=== PATIENT | male | born 1940 | race Caucasian/White ===

== ENCOUNTER 2017-01-05 06:29 | Inpatient (IN) | payer OTHER ==
[~2017-01-05] VITALS: Ht 172.7 cm; Wt 76.0 kg
[2017-01-05 06:54] LABS: HEMATOCRIT 47.5 % (38.0-50.0); MCH 31.4 PG (29.0-34.0); MCHC 34.7 G/DL (30.0-36.0); MCV 90.5 FL (86-99); PLATELET COUNT 162 K/uL (156-360); RBC DIS.WIDTH-CV 12.6 % (11.8-14.6); RED BLOOD COUNT 5.25 M/uL (4.00-5.50); WHITE BLOOD COUNT 11.6 K/uL (4.1-10.2)
[2017-01-05 07:17] LABS: ANION GAP 12 MEQ/L (2-14); CHLORIDE 105 MEQ/L (99-109); POTASSIUM 3.7 MEQ/L (3.7-5.4); SAMPLE HEMOLYSIS CHECK 0; SAMPLE ICTERIC CHECK 0; SAMPLE LIPEMIA CHECK 0; SODIUM 141 MEQ/L (136-147)
[2017-01-05 07:23] LABS: GFR ESTIMATE (CALCULATED) > 59 mL/min/; GLUCOSE 116 mg/dL (70-99); UREA NITROGEN (BUN) 24 mg/dL (9-23)
[2017-01-05 07:29] LABS: TROP-I INTERPRETATION POSITIVE; TROPONIN-I 11.91 ng/mL (0.0-0.30)
[2017-01-05] MEDS ORDERED: AMLODIPINE BESY10 MG PO (07:46)
[2017-01-05] MEDS ORDERED: HYGROTON50 MG PO (07:47)
[2017-01-05] MEDS ORDERED: ASPIR 8181 M1 PO (07:47)
[2017-01-05] MEDS ORDERED: ARICEPT5 MG PO (07:47)
[2017-01-05] MEDS ORDERED: HYTRIN5 MG PO (07:48)
[2017-01-05] MEDS ORDERED: BENICAR20 MG PO (07:48)
[2017-01-05] MEDS ORDERED: PRAVACHOL40 MG PO (07:48)
[2017-01-05 17:14] VITALS: BP 124/64
[2017-01-05 18:23] LABS: TROP-I INTERPRETATION POSITIVE; TROPONIN-I 29.29 ng/mL (0.0-0.30)
[2017-01-05 23:37] VITALS: BP 115/55
[2017-01-06 00:51] LABS: TROP-I INTERPRETATION POSITIVE; TROPONIN-I 29.11 ng/mL (0.0-0.30)
[2017-01-06 04:13] VITALS: BP 122/71
[2017-01-06 04:21] VITALS: BP 122/71
[2017-01-06 05:39] LABS: TROP-I INTERPRETATION POSITIVE; TROPONIN-I 27.39 ng/mL (0.0-0.30)
[2017-01-06 06:38] LABS: EOSINOPHIL (%) 0.8 % (0-5); EOSINOPHIL COUNT 0.1 K/uL (0-0.3); HEMATOCRIT 42.8 % (38.0-50.0); IMMATURE GRANULOCYTE (%) 0.4 % (0.0-0.7); INSTRUMENT ABS NEUTROPHIL CT 7.7 K/uL; LYMPHOCYTE COUNT 1.3 K/uL (1.0-2.8); MCH 30.3 PG (29.0-34.0); MCHC 33.2 G/DL (30.0-36.0); MCV 91.3 FL (86-99); MEAN PLAT.VOLUME 11.6 uM^3 (9.0-12.4); MONOCYTE (%) 11.3 % (3-12); MONOCYTE COUNT 1.2 K/uL (0-0.8); NEUTROPHIL (%) 74.4 % (45-76); NEUTROPHIL COUNT 7.7 K/uL (1.8-6.4); PLATELET COUNT 152 K/uL (156-360); RBC DIS.WIDTH-CV 13.1 % (11.8-14.6); RBC DIS.WIDTH-SD 43.8 % (39-53); RED BLOOD COUNT 4.69 M/uL (4.00-5.50); WHITE BLOOD COUNT 10.4 K/uL (4.1-10.2)
[2017-01-06 06:55] LABS: ANION GAP 10 MEQ/L (2-14); CHLORIDE 108 MEQ/L (99-109); GFR ESTIMATE (CALCULATED) > 59 mL/min/; GLUCOSE 102 mg/dL (70-99); HDL CHOLESTEROL 40 MG/DL (Desirable>=40); LDL CHOLESTEROL 95 mg/dL (Desirable<100); NON-HDL CHOLESTEROL 115 mg/dL (Desirable<160); POTASSIUM 3.9 MEQ/L (3.7-5.4); SAMPLE HEMOLYSIS CHECK 0; SAMPLE ICTERIC CHECK 0; SAMPLE LIPEMIA CHECK 0; SODIUM 141 MEQ/L (136-147); TOTAL CHOLESTEROL 155 mg/dL (Desirable<200); TRIGLYCERIDES 99 MG/DL (Normal: <150); UREA NITROGEN (BUN) 19 mg/dL (9-23)
[2017-01-06 08:00] VITALS: BP 131/74
[2017-01-06 16:00] VITALS: BP 128/68
[2017-01-06] MEDS ORDERED: ATORVASTATIN CA40 MG PO (18:53)
[2017-01-06] MEDS ORDERED: LOPRESSOR25 MG PO (18:53)
[2017-01-06] MEDS ORDERED: BRILINTA90 MG PO (18:53)
== END 2017-01-06 19:55 | disposition home or self-care (01) | DRG 247 ==
LOC: EME 06:29 → CATH 07:36 → EME 07:36 → 4EAST 11:21 → 2SOUTH 11:21 → 4EAST 17:05
PROVIDERS: Internal Medicine Cardiovascular Disease
DX: I21.4 Non-ST elevation (NSTEMI) myocardial infarction (principal); I25.111 Atherosclerotic heart disease of native coronary artery with angina pectoris with documented spasm; I10 Essential (primary) hypertension; E78.5 Hyperlipidemia, unspecified; I51.9 Heart disease, unspecified; I69.393 Ataxia following cerebral infarction; I69.311 Memory deficit following cerebral infarction
CPT/HCPCS: 71010; 80048; 80061; 84484; 85025; 85027; 85347; 93005; 93306; 99281; 99284; C1725; C1760; C1769; C1874; C1887; C1894; J1644; J2250; J2270; J3010; J3246; J7030

== ENCOUNTER 2017-02-24 12:51 | Emergency (ER) | payer OTHER ==
[~2017-02-24] VITALS: Ht 172.7 cm; Wt 68.0 kg
[~2017-02-24 12:51] MED LIST: AMLODIPINE BESY10 MG PO; ARICEPT5 MG PO; ASPIR 8181 M1 PO; ATORVASTATIN CA40 MG PO; BENICAR20 MG PO; BRILINTA90 MG PO; HYGROTON50 MG PO; HYTRIN5 MG PO; LOPRESSOR25 MG PO; PRAVACHOL40 MG PO
[2017-02-24 14:04] LABS: HEMATOCRIT 44.4 % (38.0-50.0); MCH 31.2 PG (29.0-34.0); MCHC 34.7 G/DL (30.0-36.0); MCV 89.9 FL (86-99); MEAN PLAT.VOLUME 11.3 uM^3 (9.0-12.4); PLATELET COUNT 146 K/uL (156-360); RBC DIS.WIDTH-CV 12.4 % (11.8-14.6); RBC DIS.WIDTH-SD 41.1 % (39-53); RED BLOOD COUNT 4.94 M/uL (4.00-5.50); WHITE BLOOD COUNT 7.8 K/uL (4.1-10.2)
[2017-02-24 14:13] LABS: INTER. NORMALIZED RATIO 1.1; PROTHROMBIN TIME 10.7 (9.2-11.2)
[2017-02-24 14:19] LABS: CHLORIDE 109 mEq/L (99-109); POTASSIUM 3.3 mEq/L (3.7-5.4); SODIUM 146 mEq/L (136-147)
[2017-02-24 14:21] LABS: GLUCOSE 89 mg/dL (70-99)
[2017-02-24 14:23] LABS: ANION GAP 14 MEQ/L (2-14)
[2017-02-24 14:25] LABS: GFR ESTIMATE (CALCULATED) > 59 mL/min/
[2017-02-24 14:26] LABS: UREA NITROGEN (BUN) 17 mg/dL (9-23)
[2017-02-24 16:33] VITALS: BP 165/91
== END 2017-02-24 16:34 | disposition home or self-care (01) ==
LOC: EME 12:51
DX: K13.79 Other lesions of oral mucosa (principal); D68.32 Hemorrhagic disorder due to extrinsic circulating anticoagulants; T45.515A Adverse effect of anticoagulants, initial encounter; Z79.82 Long term (current) use of aspirin; I10 Essential (primary) hypertension
CPT/HCPCS: 80048; 85027; 85610; 86900; 86901; 99281; 99283

== ENCOUNTER → 2017-03-15 | Outpatient (CLI) | payer OTHER | END | disposition home or self-care (01) | LOC: RAD 12:12 | DX: I70.0 Atherosclerosis of aorta (principal); J98.6 Disorders of diaphragm; I87.8 Other specified disorders of veins; J98.4 Other disorders of lung; M47.9 Spondylosis, unspecified; R33.9 Retention of urine, unspecified | CPT/HCPCS: 74022; 76775 ==

== ENCOUNTER 2017-03-16 12:17 | Emergency (ER) | payer OTHER ==
[~2017-03-16] VITALS: Ht 172.7 cm; Wt 68.2 kg
[2017-03-16 13:19] LABS: HEMATOCRIT 42.1 % (38.0-50.0); MCH 31.4 PG (29.0-34.0); MCHC 35.4 G/DL (30.0-36.0); MCV 88.6 FL (86-99); MEAN PLAT.VOLUME 11.5 uM^3 (9.0-12.4); PLATELET COUNT 136 K/uL (156-360); RBC DIS.WIDTH-CV 13.3 % (11.8-14.6); RBC DIS.WIDTH-SD 43.3 % (39-53); RED BLOOD COUNT 4.75 M/uL (4.00-5.50); WHITE BLOOD COUNT 15.6 K/uL (4.1-10.2)
[2017-03-16 13:29] LABS: CHLORIDE 107 mEq/L (99-109); POTASSIUM 3.1 mEq/L (3.7-5.4); SODIUM 144 mEq/L (136-147)
[2017-03-16 13:32] LABS: GLUCOSE 137 mg/dL (70-99)
[2017-03-16 13:33] LABS: ANION GAP 11 MEQ/L (2-14)
[2017-03-16 13:34] LABS: TOTAL BILIRUBIN 1.6 mg/dL (0.0-1.0)
[2017-03-16 13:35] LABS: ALKALINE PHOSPHATASE 80 IU/L (3-129); GFR ESTIMATE (CALCULATED) 49 mL/min/
[2017-03-16 13:36] LABS: UREA NITROGEN (BUN) 30 mg/dL (9-23)
[2017-03-16 13:39] LABS: LIPASE 20 U/L (1.0-51.0)
[2017-03-16 14:48] LABS: ADD MIUA? YES; BILIRUBIN NEGATIVE; BLOOD LARGE; COLOR YELLOW ((YELLOW)); GLUCOSE (STRIP) NEGATIVE; KETONES 20; LEUKOCYTES NEGATIVE; NITRITE NEGATIVE; PROTEIN (STRIP) 30; SPECIFIC GRAVITY 1.012 (1.000-1.030); UROBILINOGEN 0.2 MG/DL (0.2-1.0)
[2017-03-16 15:18] LABS: BACTERIA RARE /HPF; EPITHELIAL CELLS NONE SEEN /HPF; MUCUS TRACE /LPF; RED BLOOD CELLS TNTC /HPF (0-5); UCUL ADDED? NO
[2017-03-16 16:35] VITALS: BP 175/88
== END 2017-03-16 16:40 | disposition home or self-care (01) ==
LOC: EME 12:17
PROVIDERS: Nurse Practitioner Family
PROC: 0T9B70Z Drainage of Bladder with Drainage Device, Via Natural or Artificial Opening (ICD-10-PCS; principal; 2017-03-16)
DX: R33.9 Retention of urine, unspecified (principal); N39.0 Urinary tract infection, site not specified; R11.2 Nausea with vomiting, unspecified; I10 Essential (primary) hypertension; Z79.82 Long term (current) use of aspirin
CPT/HCPCS: 80053; 81003; 83690; 85027; 99281; 99285

== ENCOUNTER 2017-04-14 14:02 | Inpatient (IN) | payer OTHER ==
[~2017-04-14] VITALS: Ht 170.2 cm; Wt 63.7 kg
[2017-04-14 15:00] LABS: HEMATOCRIT 42.5 % (38.0-50.0); MCHC 34.1 G/DL (30.0-36.0); MEAN PLAT.VOLUME 10.2 uM^3 (9.0-12.4); PLATELET COUNT 284 K/uL (156-360); RBC DIS.WIDTH-CV 12.8 % (11.8-14.6); RBC DIS.WIDTH-SD 41.1 % (39-53); RED BLOOD COUNT 4.83 M/uL (4.00-5.50); WHITE BLOOD COUNT 12.6 K/uL (4.1-10.2)
[2017-04-14 15:02] LABS: CHLORIDE 93 mEq/L (99-109); POTASSIUM 2.6 mEq/L (3.7-5.4); SODIUM 142 mEq/L (136-147)
[2017-04-14 15:04] LABS: GLUCOSE 109 mg/dL (70-99)
[2017-04-14 15:05] LABS: ANION GAP 19 MEQ/L (2-14)
[2017-04-14 15:06] LABS: TOTAL BILIRUBIN 0.9 mg/dL (0.0-1.0)
[2017-04-14 15:08] LABS: ALKALINE PHOSPHATASE 139 IU/L (3-129); GFR ESTIMATE (CALCULATED) > 59 mL/min/
[2017-04-14 15:09] LABS: UREA NITROGEN (BUN) 26 mg/dL (9-23)
[2017-04-14 15:49] LABS: TROP-I INTERPRETATION NEGATIVE; TROPONIN-I 0.03 ng/mL (0.0-0.30)
[2017-04-14 18:19] LABS: MAGNESIUM 1.8 mg/dL (1.3-2.7)
[2017-04-14 18:30] LABS: ADD MIUA? YES; BILIRUBIN NEGATIVE; BLOOD LARGE; COLOR YELLOW ((YELLOW)); GLUCOSE (STRIP) NEGATIVE; KETONES 5; LEUKOCYTES NEGATIVE; NITRITE NEGATIVE; PROTEIN (STRIP) 30; SPECIFIC GRAVITY 1.014 (1.000-1.030); UROBILINOGEN 0.2 MG/DL (0.2-1.0)
[2017-04-14 18:44] LABS: BACTERIA NONE SEEN /HPF; EPITHELIAL CELLS NONE SEEN /HPF; MUCUS TRACE /LPF; RED BLOOD CELLS TNTC /HPF (0-5); UCUL ADDED? YES
[2017-04-14] MEDS ORDERED: MANDELAMINE500 MG PO (19:25)
[2017-04-14] MEDS ORDERED: PROSCAR5 MG PO (19:25)
[2017-04-14] MEDS ORDERED: LASIX20 MG PO (19:26)
[2017-04-14] MEDS ORDERED: REMERON15 M2 PO (19:26)
[2017-04-14] MEDS ORDERED: FLOMAX0.4 MG PO (19:26)
[2017-04-14 23:43] LABS: CHLORIDE 97 mEq/L (99-109); POTASSIUM 3.1 mEq/L (3.7-5.4); SODIUM 143 mEq/L (136-147)
[2017-04-14 23:44] LABS: GLUCOSE 101 mg/dL (70-99)
[2017-04-14 23:46] LABS: ANION GAP 16 MEQ/L (2-14)
[2017-04-14 23:48] LABS: GFR ESTIMATE (CALCULATED) > 59 mL/min/
[2017-04-14 23:49] LABS: UREA NITROGEN (BUN) 26 mg/dL (9-23)
[2017-04-14 23:57] LABS: TROP-I INTERPRETATION NEGATIVE; TROPONIN-I 0.04 ng/mL (0.0-0.30)
[2017-04-15] VITALS (7 sets, daily range): BP systolic 102–135; BP diastolic 60–68
[2017-04-15 04:24] LABS: HEMATOCRIT 37.4 % (38.0-50.0); MCH 30.9 PG (29.0-34.0); MCHC 34.8 G/DL (30.0-36.0); MCV 88.8 FL (86-99); MEAN PLAT.VOLUME 10.6 uM^3 (9.0-12.4); PLATELET COUNT 209 K/uL (156-360); RED BLOOD COUNT 4.21 M/uL (4.00-5.50); WHITE BLOOD COUNT 8.9 K/uL (4.1-10.2)
[2017-04-15 04:37] LABS: CHLORIDE 97 mEq/L (99-109); POTASSIUM 3.2 mEq/L (3.7-5.4); SODIUM 141 mEq/L (136-147)
[2017-04-15 04:39] LABS: GLUCOSE 93 mg/dL (70-99)
[2017-04-15 04:40] LABS: ANION GAP 16 MEQ/L (2-14)
[2017-04-15 04:43] LABS: GFR ESTIMATE (CALCULATED) > 59 mL/min/
[2017-04-15 04:44] LABS: UREA NITROGEN (BUN) 23 mg/dL (9-23)
[2017-04-15 04:45] LABS: CREATINE KINASE 27 IU/L (1-294); TROP-I INTERPRETATION NEGATIVE; TROPONIN-I 0.05 ng/mL (0.0-0.30)
[2017-04-15 05:16] LABS: SAMPLE HEMOLYSIS CHECK 0; SAMPLE ICTERIC CHECK 0; SAMPLE LIPEMIA CHECK 0
[2017-04-15 05:22] LABS: HDL CHOLESTEROL 32 MG/DL (Desirable>=40); LDL CHOLESTEROL 82 mg/dL (Desirable<100); NON-HDL CHOLESTEROL 104 mg/dL (Desirable<160); TOTAL CHOLESTEROL 136 mg/dL (Desirable<200); TRIGLYCERIDES 108 MG/DL (Normal: <150)
[2017-04-15 10:13] LABS: HIV INDEX 0.12; HIV-1/2 AB/AG COMBO Nonreactive
[2017-04-16 04:06] VITALS: BP 110/66
[2017-04-16 07:09] LABS: GFR ESTIMATE (CALCULATED) > 59 mL/min/; GLUCOSE 82 mg/dL (70-99); SAMPLE HEMOLYSIS CHECK 0; SAMPLE ICTERIC CHECK 0; SAMPLE LIPEMIA CHECK 0; UREA NITROGEN (BUN) 16 mg/dL (9-23)
[2017-04-16 07:14] LABS: ANION GAP 10 MEQ/L (2-14); CHLORIDE 105 MEQ/L (99-109); POTASSIUM 3.3 MEQ/L (3.7-5.4); SODIUM 146 MEQ/L (136-147)
[2017-04-16 08:00] VITALS: BP 122/71
[2017-04-16 11:25] VITALS: BP 120/72
[2017-04-16 15:26] VITALS: BP 128/77
[2017-04-16 19:05] VITALS: BP 110/57
[2017-04-16 22:50] VITALS: BP 119/67
[2017-04-17 03:45] VITALS: BP 131/75
[2017-04-17 06:12] LABS: HEMATOCRIT 35.4 % (38.0-50.0); MCH 30.3 PG (29.0-34.0); MCHC 33.9 G/DL (30.0-36.0); MCV 89.4 FL (86-99); MEAN PLAT.VOLUME 10.4 uM^3 (9.0-12.4); PLATELET COUNT 183 K/uL (156-360); RBC DIS.WIDTH-CV 13.2 % (11.8-14.6); RBC DIS.WIDTH-SD 43.6 % (39-53); RED BLOOD COUNT 3.96 M/uL (4.00-5.50); WHITE BLOOD COUNT 7.2 K/uL (4.1-10.2)
[2017-04-17 06:41] LABS: ANION GAP 5 MEQ/L (2-14); CHLORIDE 108 MEQ/L (99-109); GFR ESTIMATE (CALCULATED) > 59 mL/min/; GLUCOSE 93 mg/dL (70-99); MAGNESIUM 1.9 mg/dl (1.3-2.7); POTASSIUM 3.7 MEQ/L (3.7-5.4); SAMPLE HEMOLYSIS CHECK 0; SAMPLE ICTERIC CHECK 0; SAMPLE LIPEMIA CHECK 0; SODIUM 144 MEQ/L (136-147); UREA NITROGEN (BUN) 16 mg/dL (9-23)
[2017-04-17 07:10] VITALS: BP 145/74
[2017-04-17 12:04] VITALS: BP 137/60
[2017-04-17 16:09] VITALS: BP 113/87
[2017-04-17 18:53] VITALS: BP 119/65
[2017-04-17 22:43] VITALS: BP 121/72
[2017-04-18 04:00] VITALS: BP 125/79
[2017-04-18 07:25] LABS: ANION GAP 7 MEQ/L (2-14); CHLORIDE 109 MEQ/L (99-109); GFR ESTIMATE (CALCULATED) > 59 mL/min/; GLUCOSE 91 mg/dL (70-99); POTASSIUM 4.4 MEQ/L (3.7-5.4); SAMPLE HEMOLYSIS CHECK 0; SAMPLE ICTERIC CHECK 0; SAMPLE LIPEMIA CHECK 0; SODIUM 144 MEQ/L (136-147); UREA NITROGEN (BUN) 16 mg/dL (9-23)
[2017-04-18 07:32] VITALS: BP 134/64
[2017-04-18 11:53] VITALS: BP 149/83
[2017-04-18 15:54] VITALS: BP 135/75
[2017-04-18] MEDS ORDERED: FAMOTIDINE20 MG PO (17:44)
[2017-04-18] MEDS ORDERED: K-DUR20 MEQ PO (17:44)
[2017-04-18] MEDS ORDERED: Chronulac,Cephulac,E PO (17:44)
== END 2017-04-18 20:12 | DRG 641 ==
LOC: EME 14:02 → EDOF 19:09 → 5EAST 19:09 → ENRESERV 19:15 → 5EAST 21:43
PROVIDERS: Hospitalist; Internal Medicine; Physician Assistant Medical
DX: E86.0 Dehydration (principal); E87.6 Hypokalemia; I25.2 Old myocardial infarction; I25.118 Atherosclerotic heart disease of native coronary artery with other forms of angina pectoris; I10 Essential (primary) hypertension; I42.0 Dilated cardiomyopathy; R62.7 Adult failure to thrive; R33.9 Retention of urine, unspecified; R63.4 Abnormal weight loss; J90 Pleural effusion, not elsewhere classified; E78.5 Hyperlipidemia, unspecified; F33.2 Major depressive disorder, recurrent severe without psychotic features; R45.851 Suicidal ideations; I69.393 Ataxia following cerebral infarction; F33.3 Major depressive disorder, recurrent, severe with psychotic symptoms; N40.1 Benign prostatic hyperplasia with lower urinary tract symptoms; N13.8 Other obstructive and reflux uropathy; G62.9 Polyneuropathy, unspecified; G60.0 Hereditary motor and sensory neuropathy; K22.2 Esophageal obstruction; M50.30 Other cervical disc degeneration, unspecified cervical region
CPT/HCPCS: 70491; 71260; 72100; 74177; 74241; 80048; 80048 91; 80053; 80061; 81003; 82272; 82306; 82550; 82607; 82746; 83735; 84443; 84484; 85027; 85651; 86703; 87086; 87493; 92610 GN; 93005; 99281; 99285; J1644; J2405; J3480; J7030

== ENCOUNTER 2017-05-13 11:05 | Observation (INO) | payer OTHER ==
[~2017-05-13] VITALS: Ht 172.7 cm; Wt 58.5 kg
[~2017-05-13 11:05] MED LIST changes: +Chronulac,Cephulac,E PO; +FAMOTIDINE20 MG PO; +FLOMAX0.4 MG PO; +K-DUR20 MEQ PO; +LASIX20 MG PO; +MANDELAMINE500 MG PO; +PROSCAR5 MG PO; +REMERON30 M1 PO
[2017-05-13 13:12] LABS: HEMATOCRIT 39.7 % (38.0-50.0); MCH 30.7 PG (29.0-34.0); MCV 90.2 FL (86-99); PLATELET COUNT 213 K/uL (156-360); RBC DIS.WIDTH-CV 14.2 % (11.8-14.6); RBC DIS.WIDTH-SD 47.6 % (39-53); WHITE BLOOD COUNT 10.9 K/uL (4.1-10.2)
[2017-05-13 13:13] LABS: ADD MIUA? YES; BILIRUBIN NEGATIVE; BLOOD MODERATE; COLOR AMBER ((YELLOW)); GLUCOSE (STRIP) NEGATIVE; KETONES NEGATIVE; LEUKOCYTES LARGE; NITRITE POSITIVE; PROTEIN (STRIP) 100; SPECIFIC GRAVITY 1.023 (1.000-1.030); UROBILINOGEN 0.2 MG/DL (0.2-1.0)
[2017-05-13 13:17] LABS: CHLORIDE 99 mEq/L (99-109); POTASSIUM 4.2 mEq/L (3.7-5.4); SODIUM 134 mEq/L (136-147)
[2017-05-13 13:19] LABS: GLUCOSE 100 mg/dL (70-99)
[2017-05-13 13:20] LABS: ANION GAP 12 MEQ/L (2-14)
[2017-05-13 13:23] LABS: GFR ESTIMATE (CALCULATED) > 59 mL/min/
[2017-05-13 13:24] LABS: UREA NITROGEN (BUN) 25 mg/dL (9-23)
[2017-05-13 13:27] LABS: TROP-I INTERPRETATION NEGATIVE; TROPONIN-I < 0.01 ng/mL (0.0-0.30)
[2017-05-13 13:33] LABS: AMORPHOUS URATES CRYSTALS 2+; BACTERIA 3+ /HPF; CASTS NONE SEEN /LPF; CRYSTALS PRESENT; EPITHELIAL CELLS RARE /HPF; MUCUS NONE SEEN /LPF; UCUL ADDED? YES; WHITE BLOOD CELLS TNTC /HPF (0-5)
[2017-05-13] MEDS ORDERED: LIPITOR40 MG PO (14:59)
[2017-05-13 18:18] VITALS: BP 112/65
[2017-05-14 00:24] VITALS: BP 99/56
[2017-05-14 04:59] VITALS: BP 97/54
[2017-05-14 06:03] LABS: ANION GAP 7 MEQ/L (2-14); CHLORIDE 106 MEQ/L (99-109); GFR ESTIMATE (CALCULATED) > 59 mL/min/; GLUCOSE 82 mg/dL (70-99); POTASSIUM 3.8 MEQ/L (3.7-5.4); SAMPLE HEMOLYSIS CHECK 0; SAMPLE ICTERIC CHECK 0; SAMPLE LIPEMIA CHECK 0; SODIUM 137 MEQ/L (136-147); UREA NITROGEN (BUN) 18 mg/dL (9-23)
[2017-05-14 08:38] VITALS: BP 106/58
[2017-05-14 12:36] VITALS: BP 102/57
[2017-05-14] MEDS ORDERED: BACTRIM,SEPT1 TABLET PO (12:50)
== END 2017-05-14 15:07 | disposition home or self-care (01) ==
LOC: EME 11:05 → EDOF 15:32 → ENRESERV 15:34 → 5WEST 18:08
PROVIDERS: Emergency Medicine; Nurse Practitioner Adult Health
DX: I95.1 Orthostatic hypotension (principal); N39.0 Urinary tract infection, site not specified; I25.10 Atherosclerotic heart disease of native coronary artery without angina pectoris; I25.2 Old myocardial infarction; I10 Essential (primary) hypertension; Z86.73 Personal history of transient ischemic attack (TIA), and cerebral infarction without residual deficits; N40.1 Benign prostatic hyperplasia with lower urinary tract symptoms; R33.8 Other retention of urine; I42.9 Cardiomyopathy, unspecified; Z86.19 Personal history of other infectious and parasitic diseases; Z95.5 Presence of coronary angioplasty implant and graft; Z82.3 Family history of stroke; Z82.49 Family history of ischemic heart disease and other diseases of the circulatory system; Z83.49 Family history of other endocrine, nutritional and metabolic diseases; Z91.09 Other allergy status, other than to drugs and biological substances; Z79.82 Long term (current) use of aspirin
CPT/HCPCS: 71010; 80048; 81003; 84484; 85027; 87040; 87077; 87086; 87186; 93005; 99281; 99285; G0378; G8987 CK; G8988 GO CJ; J0696; J1650; J7030; J7050

== ENCOUNTER 2017-05-30 14:03 | Inpatient (IN) | payer OTHER ==
[~2017-05-30] VITALS: Ht 172.7 cm; Wt 59.1 kg
[~2017-05-30 14:03] MED LIST changes: +BACTRIM,SEPT1 TABLET PO; +LIPITOR40 MG PO; -MANDELAMINE500 MG PO
[2017-05-30 15:26] LABS: HEMATOCRIT 39.3 % (38.0-50.0); MCH 29.9 PG (29.0-34.0); MCHC 33.3 G/DL (30.0-36.0); MCV 89.7 FL (86-99); RBC DIS.WIDTH-CV 14.3 % (11.8-14.6); RBC DIS.WIDTH-SD 47.8 % (39-53); RED BLOOD COUNT 4.38 M/uL (4.00-5.50); WHITE BLOOD COUNT 4.5 K/uL (4.1-10.2)
[2017-05-30 15:39] LABS: CHLORIDE 98 mEq/L (99-109); POTASSIUM 3.4 mEq/L (3.7-5.4); SODIUM 134 mEq/L (136-147)
[2017-05-30 15:41] LABS: GLUCOSE 97 mg/dL (70-99)
[2017-05-30 15:42] LABS: ANION GAP 10 MEQ/L (2-14)
[2017-05-30 15:43] LABS: TOTAL BILIRUBIN 0.8 mg/dL (0.0-1.0)
[2017-05-30 15:44] LABS: ALKALINE PHOSPHATASE 106 IU/L (3-129)
[2017-05-30 15:45] LABS: GFR ESTIMATE (CALCULATED) > 59 mL/min/
[2017-05-30 15:46] LABS: UREA NITROGEN (BUN) 14 mg/dL (9-23)
[2017-05-30 15:51] LABS: TROP-I INTERPRETATION NEGATIVE; TROPONIN-I 0.01 ng/mL (0.0-0.30)
[2017-05-30 16:26] LABS: ABS NEUTROPHIL COUNT 3.3; ANISOCYTOSIS 1+; ATYPICAL LYMPHOCYTE 1.8 %; BAND NEUTROPHILS 16.8 % (0-8.0); BURR CELLS 1+; EOSINOPHIL ABS CT 0; GIANT PLATELETS 1+; INSTRUMENT ABS NEUTROPHIL CT 3.2 K/uL; LYMPHOCYTES 16.8 % (15.0-45.0); MICROCYTOSIS 1+; OVALOCYTES 1+; PLAT.SUFFICIENCY ADEQUATE; PLATELET CLUMPS PRESENT - PLATELET COUNT APPEARS ADQ.; SEG.NEUTROPHILS 57.5 % (46.0-76.0); SPHEROCYTES 1+
[2017-05-30 16:27] LABS: PLATELET COUNT UNABLE TO REPORT K/uL (156-360)
[2017-05-30] MEDS ORDERED: MANDELAMINE500 MG PO (19:30)
[2017-05-30] MEDS ORDERED: BACTRIM,SEPTRA S1 ML PO (19:32)
[2017-05-30 21:43] VITALS: BP 131/78
[2017-05-31 06:51] LABS: HEMATOCRIT 33.3 % (38.0-50.0); MCH 31.2 PG (29.0-34.0); MCHC 34.2 G/DL (30.0-36.0); MCV 91.2 FL (86-99); MEAN PLAT.VOLUME 10.1 uM^3 (9.0-12.4); RBC DIS.WIDTH-CV 14.6 % (11.8-14.6); RBC DIS.WIDTH-SD 49.3 % (39-53); RED BLOOD COUNT 3.65 M/uL (4.00-5.50); WHITE BLOOD COUNT 4.4 K/uL (4.1-10.2)
[2017-05-31 07:06] LABS: PLATELET COUNT 163 K/uL (156-360)
[2017-05-31 07:48] LABS: ALKALINE PHOSPHATASE 76 IU/L (3-129); ANION GAP 5 MEQ/L (2-14); CHLORIDE 105 MEQ/L (99-109); GFR ESTIMATE (CALCULATED) > 59 mL/min/; GLUCOSE 85 mg/dL (70-99); POTASSIUM 3.5 MEQ/L (3.7-5.4); SAMPLE HEMOLYSIS CHECK 0; SAMPLE ICTERIC CHECK 0; SAMPLE LIPEMIA CHECK 0; SODIUM 137 MEQ/L (136-147); TOTAL BILIRUBIN 0.8 MG/DL (0.0-1.0); UREA NITROGEN (BUN) 10 mg/dL (9-23)
[2017-05-31 07:53] VITALS: BP 120/60
[2017-05-31 09:38] LABS: MAGNESIUM 1.6 mg/dl (1.3-2.7)
[2017-05-31 14:06] LABS: ADD MIUA? YES; BILIRUBIN NEGATIVE; BLOOD LARGE; COLOR YELLOW ((YELLOW)); GLUCOSE (STRIP) NEGATIVE; KETONES 5; LEUKOCYTES TRACE; NITRITE NEGATIVE; PROTEIN (STRIP) NEGATIVE; SPECIFIC GRAVITY 1.011 (1.000-1.030); UROBILINOGEN 0.2 MG/DL (0.2-1.0)
[2017-05-31 14:20] LABS: BACTERIA RARE /HPF; BUDDING YEAST 4+; EPITHELIAL CELLS NONE SEEN /HPF; MUCUS TRACE /LPF; RED BLOOD CELLS 30-40 /HPF (0-5); UCUL ADDED? NO; WHITE BLOOD CELLS 0-5 /HPF (0-5)
[2017-05-31 17:25] VITALS: BP 122/66
[2017-05-31 22:35] VITALS: BP 138/84
[2017-06-01 06:11] LABS: HEMATOCRIT 33.4 % (38.0-50.0); MCHC 33.2 G/DL (30.0-36.0); MCV 90.3 FL (86-99); MEAN PLAT.VOLUME 9.7 uM^3 (9.0-12.4); PLATELET COUNT 167 K/uL (156-360); RBC DIS.WIDTH-CV 14.4 % (11.8-14.6); RBC DIS.WIDTH-SD 47.5 % (39-53); WHITE BLOOD COUNT 6.3 K/uL (4.1-10.2)
[2017-06-01 06:37] LABS: ANION GAP 9 MEQ/L (2-14); CHLORIDE 109 MEQ/L (99-109); GFR ESTIMATE (CALCULATED) > 59 mL/min/; GLUCOSE 76 mg/dL (70-99); POTASSIUM 3.2 MEQ/L (3.7-5.4); SAMPLE HEMOLYSIS CHECK 0; SAMPLE ICTERIC CHECK 0; SAMPLE LIPEMIA CHECK 0; SODIUM 140 MEQ/L (136-147); UREA NITROGEN (BUN) 10 mg/dL (9-23)
[2017-06-01 07:26] VITALS: BP 140/83
[2017-06-01 08:40] LABS: INTERNAL CONTROL VALID? YES
[2017-06-01] MEDS ORDERED: LEVAQUIN750 MG PO (09:56)
[2017-06-01] MEDS ORDERED: ACIDOPHILUS LA1 EAC1 PO (09:56)
[2017-06-01] MEDS ORDERED: K-DUR10 MEQ PO (09:56)
[2017-06-02] MEDS ORDERED: LEVAQUIN750 MG PO (10:20)
[2017-06-02] MEDS ORDERED: REMERON30 M1 PO (10:20)
== END 2017-06-01 16:12 | DRG 178 ==
LOC: EME → EDBD 14:03 → EME 14:03 → EDOF 19:51 → 5EAST 19:51 → ENRESERV 19:53 → 5EAST 21:07
PROVIDERS: Emergency Medicine; Internal Medicine
DX: J69.0 Pneumonitis due to inhalation of food and vomit (principal); F33.9 Major depressive disorder, recurrent, unspecified; I42.9 Cardiomyopathy, unspecified; J98.11 Atelectasis; R45.851 Suicidal ideations; Z68.1 Body mass index [BMI] 19.9 or less, adult; R13.10 Dysphagia, unspecified; F43.20 Adjustment disorder, unspecified; I11.0 Hypertensive heart disease with heart failure; I50.9 Heart failure, unspecified; I25.2 Old myocardial infarction; E87.6 Hypokalemia; I25.10 Atherosclerotic heart disease of native coronary artery without angina pectoris; Z98.61 Coronary angioplasty status; I69.391 Dysphagia following cerebral infarction; E88.09 Other disorders of plasma-protein metabolism, not elsewhere classified; N40.1 Benign prostatic hyperplasia with lower urinary tract symptoms; R33.8 Other retention of urine; F17.210 Nicotine dependence, cigarettes, uncomplicated; R62.7 Adult failure to thrive; Z63.8 Other specified problems related to primary support group; I69.393 Ataxia following cerebral infarction; Z82.3 Family history of stroke; Z82.49 Family history of ischemic heart disease and other diseases of the circulatory system
CPT/HCPCS: 71020; 71250; 80048; 80053; 81003; 82310; 83605; 83735; 84100; 84484; 85025; 85027; 87040; 87070; 87205; 87449; 92610 GN; 93005; 97530 GO; 99202; 99281; 99285; J0456; J1644; J2543; J3480; J7030; J7050; S0028

== ENCOUNTER 2017-06-01 14:29 | Inpatient (IN) | payer OTHER ==
[~2017-06-01 14:29] MED LIST changes: +ACIDOPHILUS LA1 EAC1 PO; +BACTRIM,SEPTRA S1 ML PO; +K-DUR10 MEQ PO; +LEVAQUIN750 MG PO; +MANDELAMINE500 MG PO
[2017-06-02] MEDS ORDERED: LEVAQUIN750 MG PO (10:20)
[2017-06-02] MEDS ORDERED: REMERON30 M1 PO (10:20)
== END 2017-06-02 12:59 | disposition left against medical advice (07) | DRG 885 ==
LOC: 1WEST 14:29 → ENRESERV 14:30 → 1WEST 16:22
DX: F33.1 Major depressive disorder, recurrent, moderate (principal); I25.10 Atherosclerotic heart disease of native coronary artery without angina pectoris; E78.00 Pure hypercholesterolemia, unspecified; I42.9 Cardiomyopathy, unspecified; N40.1 Benign prostatic hyperplasia with lower urinary tract symptoms; R33.8 Other retention of urine; F17.210 Nicotine dependence, cigarettes, uncomplicated; Z82.3 Family history of stroke; Z82.49 Family history of ischemic heart disease and other diseases of the circulatory system

== ENCOUNTER 2017-06-06 11:30 | Emergency (ER) | payer OTHER ==
[~2017-06-06] VITALS: Ht 172.7 cm; Wt 58.1 kg
[2017-06-06 12:41] LABS: EOSINOPHIL (%) 0.8 % (0-5); EOSINOPHIL COUNT 0.1 K/uL (0-0.3); HEMATOCRIT 37.5 % (38.0-50.0); IMMATURE GRANULOCYTE (%) 1.2 % (0.0-0.7); IMMATURE GRANULOCYTE COUNT 0.1 K/uL; INSTRUMENT ABS NEUTROPHIL CT 7.7 K/uL; LYMPHOCYTE COUNT 0.7 K/uL (1.0-2.8); MCH 30.2 PG (29.0-34.0); MCHC 33.9 G/DL (30.0-36.0); MCV 89.3 FL (86-99); MEAN PLAT.VOLUME 9.7 uM^3 (9.0-12.4); MONOCYTE (%) 8.8 % (3-12); MONOCYTE COUNT 0.8 K/uL (0-0.8); NEUTROPHIL (%) 81.2 % (45-76); NEUTROPHIL COUNT 7.7 K/uL (1.8-6.4); PLATELET COUNT 264 K/uL (156-360); RBC DIS.WIDTH-CV 14.8 % (11.8-14.6); RBC DIS.WIDTH-SD 48.8 % (39-53); WHITE BLOOD COUNT 9.5 K/uL (4.1-10.2)
[2017-06-06 12:46] LABS: INTER. NORMALIZED RATIO 1.2; PROTHROMBIN TIME 12.7 SEC (10.2-12.9)
[2017-06-06 12:48] LABS: CHLORIDE 107 mEq/L (99-109); POTASSIUM 3.1 mEq/L (3.7-5.4); SODIUM 139 mEq/L (136-147)
[2017-06-06 12:49] LABS: MAGNESIUM 1.8 mg/dL (1.3-2.7)
[2017-06-06 12:50] LABS: GLUCOSE 100 mg/dL (70-99)
[2017-06-06 12:51] LABS: ANION GAP 8 MEQ/L (2-14)
[2017-06-06 12:52] LABS: TOTAL BILIRUBIN 0.9 mg/dL (0.0-1.0)
[2017-06-06 12:54] LABS: ALKALINE PHOSPHATASE 106 IU/L (3-129); GFR ESTIMATE (CALCULATED) > 59 mL/min/
[2017-06-06 12:55] LABS: UREA NITROGEN (BUN) 10 mg/dL (9-23)
[2017-06-06 12:59] LABS: TROP-I INTERPRETATION NEGATIVE; TROPONIN-I 0.01 ng/mL (0.0-0.30)
[2017-06-06 13:36] LABS: BASE EXCESS 2.9 mEq/L (-3 to +3); BICARBONATE 25.5 mEq/L (22-26); CARBOXY HGB 1.9 % (0-5); COMMENTS - BLOOD GASES C+; DEVICE ROOM AIR; METHEMOGLOBIN 1.6 % (0-1.5); PCO2 32 mm Hg (35-45); PO2 73 mm Hg (80-100); SITE RR; TOTAL RESP RATE 22 resp/min; pH 7.51 (7.35-7.45)
[2017-06-06 17:53] LABS: ADD MIUA? YES; BILIRUBIN NEGATIVE; BLOOD MODERATE; COLOR YELLOW ((YELLOW)); GLUCOSE (STRIP) NEGATIVE; KETONES 20; LEUKOCYTES MODERATE; NITRITE NEGATIVE; PROTEIN (STRIP) 30; SPECIFIC GRAVITY 1.019 (1.000-1.030)
[2017-06-06 17:58] VITALS: BP 146/88
[2017-06-06 18:32] LABS: BACTERIA RARE /HPF; CASTS NONE SEEN /LPF; EPITHELIAL CELLS RARE /HPF; MUCUS 2+ /LPF; RED BLOOD CELLS 0-5 /HPF (0-5)
== END 2017-06-06 18:01 ==
LOC: EME 11:30
PROVIDERS: Physician Assistant Medical
DX: R53.1 Weakness (principal); R11.10 Vomiting, unspecified; R63.0 Anorexia; I69.993 Ataxia following unspecified cerebrovascular disease; J90 Pleural effusion, not elsewhere classified; J98.11 Atelectasis; E87.6 Hypokalemia; Z87.01 Personal history of pneumonia (recurrent); I10 Essential (primary) hypertension; Z79.82 Long term (current) use of aspirin
CPT/HCPCS: 36600; 71010; 80053; 81003; 82803; 83605; 83735; 84484; 85025; 85610; 87040; 93005; 99281; 99284; J7030